=== PATIENT | male | born 1955 | race Caucasian/White ===

== ENCOUNTER 2016-12-12 14:30 | Emergency (ER) | payer MEDICARE, OTHER ==
[2016-12-12 14:48] VITALS: BP 162/98; PULSE 90; RESP 16; TEMP 98.2
--- NOTE | 2016-12-12 14:58 | ED ---
General Adult HPI - General Chief complaint: Dental/Oral Stated complaint: DENTAL PAIN, BROKEN TOOTH Time Seen by Provider: 12/12/16 14:32 Source: patient, RN notes reviewed Mode of arrival: ambulatory Limitations: no limitations - History of Present Illness Initial comments: This is a 61-year-old male who presents with left-sided dental pain 2 days. Patient states he fractured a tooth to the left lower jaw line 2 days ago and has noticed some increasing pain today. Patient denies any drainage from the tooth or foul odor or external facial swelling. Patient states he has had an abscessed tooth before and wanted to be seen before things got worse. Patient denies any fever/chills. Patient denies any recent shortness breath, chest pain , abdominal pain, nausea/vomiting/diarrhea, back pain, numbness, tingling, hematuria, headache, or visual changes, or any other complaints. - Related Data Previous Rx's Medication Instructions Recorded LORazepam [Ativan] 1 mg PO BID #20 tab 11/18/14 Acetaminophen-Codeine 300-30mg 1 tab PO Q6H #20 tablet 07/25/16 [Tylenol #3] Penicillin V Potassium [Pen Vee K] 250 mg PO TID 7 Days 07/25/16 Penicillin V Potassium [Pen Vee K] 500 mg PO QID 7 Days 12/12/16 traMADol HCL [Ultram] 50 mg PO Q6HR #12 tab 12/12/16 Allergies Allergy/AdvReac Type Severity Reaction Status Date / Time No Known Allergies Allergy Verified 07/25/16 16:12 Review of Systems ROS Statement: Those systems with pertinent positive or pertinent negative responses have been documented in the HPI. ROS Other: All systems not noted in ROS Statement are negative. Past Medical History Past Medical History: Hypertension History of Any Multi-Drug Resistant Organisms: None Reported Past Surgical History: No Surgical Hx Reported Past Psychological History: Bipolar Smoking Status: Former smoker Past Alcohol Use History: Abuse, Daily Past Drug Use History: None Reported General Exam - General Exam Comments Initial Comments: General: The patient is awake and alert, in no distress, and does not appear acutely ill. Eye: Pupils are equal, round and reactive to light, extra-ocular movements are intact. No nystagmus. There is normal conjunctiva bilaterally. No signs of icterus. Ears: TMs pink and pearly with intact cone of light bilaterally. Normal external ear canals Mouth and throat: Patient has poor dental hygiene. There is a fractured tooth # 19 that is tender palpation with a tongue blade. #18 tooth is missing. There is no surrounding erythema, swelling or purulent drainage. There is no external facial swelling. There are moist mucous membranes and no oral lesions. Neck: Submandibular lymph nodes present and tender on the left side. The neck is supple, there is no JVD. Cardiovascular: There is a regular rate and rhythm. No murmur, rub or gallop is appreciated. Respiratory: Lungs are clear to auscultation, respirations are non-labored, breath sounds are equal. No wheezes, stridor, rales, or rhonchi. Musculoskeletal: Normal ROM, no tenderness. Strength 5/5. Sensation intact. Radial pulses equal bilaterally 2+. Neurological: A&O x 3. CN II-XII intact, There are no obvious motor or sensory deficits. Coordination appears grossly intact. Speech is normal. Skin: Skin is warm and dry and no rashes or lesions are noted. Psychiatric: Cooperative, appropriate mood & affect, normal judgment. Limitations: no limitations Course Vital Signs 12/12/16 14:42 Temperature 98.2 F Pulse Rate 90 Respiratory 16 Rate Blood Pressure 162/98 O2 Sat by Pulse 98 Oximetry Medical Decision Making - Medical Decision Making This is a 61-year-old male presents with left-sided dental pain 2 days. On physical exam patient is well-appearing and afebrile in the EC. Patient has poor dental hygiene. There is a fractured tooth #19 that is tender palpation with a tongue blade. #18 tooth is missing. There is no surrounding erythema, swelling or purulent drainage. There is no external facial swelling. There are moist mucous membranes and no oral lesions. I discussed the patient will be started on a course of Pen-Vee K and given tramadol for breakthrough pain. I discussed Motrin for pain along with warm compresses. I discussed that patient needs to follow-up with a dentist. Patient will be given dental referrals today. I discussed return parameters. Discussed that patient should follow up with PCP in one to 2 days or return to the EC for any worsening symptoms or for any further concerns. Patient was receptive to this plan and patient will be discharged home. Disposition Clinical Impression: Pain, dental Disposition: HOME SELF-CARE Condition: Good Instructions: Toothache (ED) Additional Instructions: Please use antibiotics as prescribed. Please use pain medication as prescribed. May use [id number] Tylenol or Motrin for pain. Use warm compresses to the area for pain. Please follow-up with dentist as soon as possible. [facility] dental plan: [id number] [place] [address], . [employer]: Have to pay $50 for x-rays and the rest is covered. [phone]. Please follow up with PCP tomorrow or return to the EC for any worsening symptoms or for any further concerns. Prescriptions: Penicillin V Potassium [Pen Vee K] 500 mg PO QID 7 Days traMADol HCL [Ultram] 50 mg PO Q6HR #12 tab Referrals: None,Stated [Primary Care Provider] - 1-2 days Matty Ac MD [STAFF PHYSICIAN] - 1-2 days Sierra Ochoa III, MD [STAFF PHYSICIAN] - 1-2 days Time of Disposition: 14:58
== END 2016-12-12 15:06 | disposition home or self-care (01) ==
LOC: EC 14:30
DX: S02.5XXA Fracture of tooth (traumatic), initial encounter for closed fracture (principal); Z87.891 Personal history of nicotine dependence; X58.XXXA Exposure to other specified factors, initial encounter
CPT/HCPCS: 99282

== ENCOUNTER 2017-04-22 12:29 | Emergency (ER) | payer MEDICARE, OTHER ==
[2017-04-22] MEDS ORDERED: HYDROcodone/APAP 5-325MG 1 EACH TAB PO STA (12:50)
--- NOTE | 2017-04-22 12:50 | ED ---
General Adult HPI - General Chief complaint: Dental/Oral Stated complaint: Dental Pain Time Seen by Provider: 04/22/17 12:39 Source: patient, RN notes reviewed Mode of arrival: ambulatory Limitations: no limitations - History of Present Illness Initial comments: 61-year-old male presents to the emergency Department chief complaint of left- sided dental pain with concern for dental abscess. Patient admits to history of dental problems in the past. Patient denies fever chills. Patient states throbbing to the outside. Patient denies any nausea vomiting. Patient denies any difficulty opening or closing the mouth. Patient was concerned due to his symptoms without that he should be evaluated.Patient denies any recent fever, chills, shortness of breath, chest pain, back pain, abdominal pain, nausea vomiting, numbness or tingling, dysuria or hematuria, constipation or diarrhea, headaches or visual changes, or any other current symptoms. - Related Data Previous Rx's Medication Instructions Recorded LORazepam [Ativan] 1 mg PO BID #20 tab 11/18/14 Acetaminophen-Codeine 300-30mg 1 tab PO Q6H #20 tablet 07/25/16 [Tylenol #3] Penicillin V Potassium [Pen Vee K] 250 mg PO TID 7 Days 07/25/16 Penicillin V Potassium [Pen Vee K] 500 mg PO QID 7 Days 12/12/16 traMADol HCL [Ultram] 50 mg PO Q6HR #12 tab 12/12/16 Hydrocodone/Acetaminophen [Webster 1 each PO Q6HR PRN #20 tab 04/22/17 5-325] Penicillin V Potassium [Pen Vee K] 500 mg PO TID #40 tab 04/22/17 Allergies Allergy/AdvReac Type Severity Reaction Status Date / Time No Known Allergies Allergy Verified 04/22/17 12:33 Review of Systems ROS Statement: Those systems with pertinent positive or pertinent negative responses have been documented in the HPI. ROS Other: All systems not noted in ROS Statement are negative. Past Medical History Past Medical History: Hypertension History of Any Multi-Drug Resistant Organisms: None Reported Past Surgical History: No Surgical Hx Reported Past Psychological History: Bipolar Smoking Status: Former smoker Past Alcohol Use History: Abuse, Daily Past Drug Use History: None Reported General Exam Limitations: no limitations General appearance: alert, in no apparent distress Head exam: Present: atraumatic, normocephalic, normal inspection Eye exam: Present: normal appearance, PERRL, EOMI. Absent: scleral icterus, conjunctival injection, periorbital swelling ENT exam: Present: mucous membranes moist, other (Patient does appear to have multiple dental caries with what appears to be a dental abscess above tooth #13. ) Neck exam: Present: normal inspection. Absent: tenderness, meningismus, lymphadenopathy Respiratory exam: Present: normal lung sounds bilaterally. Absent: respiratory distress, wheezes, rales, rhonchi, stridor Cardiovascular Exam: Present: regular rate, normal rhythm, normal heart sounds. Absent: systolic murmur, diastolic murmur, rubs, gallop, clicks Neurological exam: Present: alert, oriented X3 Psychiatric exam: Present: normal affect, normal mood Skin exam: Present: warm, dry, intact, normal color. Absent: rash Course Vital Signs 04/22/17 04/22/17 12:32 13:10 Temperature 97.5 F L 96.6 F L Pulse Rate 84 81 Respiratory 20 18 Rate Blood Pressure 175/104 149/88 O2 Sat by Pulse 99 96 Oximetry Procedures - Procedures Initial comment: 18-gauge needle was used to excise an abscess above tooth #13 to the left side of the mouth patient tolerated well. Minimal purulent material was obtained. Medical Decision Making - Medical Decision Making 61-year-old male presents with presents with dental abscess. This time patient returned pain medication and legs. We discussed return parameters follow-up. We discussed all the patient's questions. He stated that he understands This plan. All questions have any discharge. Disposition Clinical Impression: Dental abscess Disposition: HOME SELF-CARE Condition: Stable Instructions: Dental Abscess (ED) Additional Instructions: Please use medication as discussed. Please follow up with family doctor if symptoms have not improved over the next two days. Please return to the emergency room if your symptoms increase or worsen or for any other concerns. [facility] Dental [facility] [place] [address] [phone] (existing clients only) For new clients: [phone] 1st consult: $50 (includes Xrays) Usually 30% less then private dentist for visits after. [employer] Have to pay $50 for Xrays anmd rest is covered. [phone] Prescriptions: Hydrocodone/Acetaminophen [Webster 5-325] 1 each PO Q6HR PRN #20 tab PRN Reason: Pain Penicillin V Potassium [Pen Vee K] 500 mg PO TID #40 tab Referrals: Anabel Figueroa MD [STAFF PHYSICIAN] - 1-2 days Time of Disposition: 13:11
[2017-04-22 13:11] VITALS: BP 149/88; PULSE 81; RESP 18; TEMP 96.6
== END 2017-04-22 13:16 | disposition home or self-care (01) ==
LOC: EC 12:29
DX: K04.7 Periapical abscess without sinus (principal); Z87.891 Personal history of nicotine dependence
CPT/HCPCS: 41800; 99282